=== PATIENT | male | born 1985 | race Caucasian/White ===

== ENCOUNTER 2016-03-26 08:47 | Day surgery (SDC) | payer OTHER ==
[~2016-03-26 08:47] MED LIST: BICITRA 30 ML CUP PO ONE; CEFAZOLIN 2 GM-D5W BAG** 50 ML IV ONE; DILAUDID 2 MG INJECTION IV ONE; DIPRIVAN 200 MG/20 ML IV ONE; Decadron 4 MG INJ IV ONE; Lactated Ringers 1,000 ML IV SCH; Pepcid 20 MG VIAL IV ONE; SUBLIMAZE 250 MCG/5 ML IV ONE; TORAdol 30 mg Injection IV ONE; Versed 2 MG/2 ML Injection IV ONE; XYLOCAINE 100 MG/5 ML ABBOJECT IV ONE; Zofran 4 MG/2 ML VIAL IV ONE
[2016-03-26] MEDS ORDERED: XYLOCAINE 1%/Epi 1:100000 MDV 20 ML ONE (08:54)
[2016-03-26] MEDS ORDERED: Marcaine 0.5% SDV 10 ML ONE (08:54)
[2016-03-26] MEDS ORDERED: EPINEPHRINE 1:1000 1 ML AMP ONE (08:54)
[2016-03-26] MEDS ORDERED: Lactated Ringers 1,000 ML IV ONE ×2 (08:54→08:55)
[2016-03-26] MEDS ORDERED: Pepcid 20 MG VIAL IV ONE (08:55)
[2016-03-26] MEDS ORDERED: BICITRA 30 ML CUP ONE (08:55)
[2016-03-26] MEDS ORDERED: CEFAZOLIN 2 GM-D5W BAG** 50 ML IV ONE (08:55)
[2016-03-26] MEDS ORDERED: ON-Q PUMP 1 in Marcaine MPF 0.25% 30 ML*** 135 ML, Marcaine Mpf 0.5% Vial 30 Ml*** 135 ML IJ SCH (10:00)
[2016-03-26] MEDS ORDERED: DILAUDID 2 MG INJECTION ONE (12:33)
--- NOTE | 2016-03-26 12:36 | OP ---
SURGERY DATE/TIME: 03/26/2016 1130 PREOPERATIVE DIAGNOSIS: Internal derangement of the left knee. POSTOPERATIVE DIAGNOSES: 1) Chondromalacia patella left knee. 2) Left knee multiple osteochondral loose bodies. PROCEDURES: 1) Left knee arthroscopy with chondroplasty to the patella. 2) Left knee arthroscopy with extensive debridement with removal of loose bodies. 3) Long leg splint. 4) On-Q pump catheter postoperative pain. SURGEON: Gus Barreto D.O. DIETARY AIDE COOK: None. ANESTHESIA: General per [employer]INTENA[employer]CE WORKER. ESTIMATED BLOOD LOSS: Minimal. DESCRIPTION OF PROCEDURE: The patient is taken to the operative suite and placed in supine position, given a general anesthesia. Entry point made in the suprapatellar of the knee with Egress cannula and 0.5% Marcaine, 1% lidocaine with epinephrine placed 50 cc into the lateral aspect and knee entered with a camera. Stab incision on the opposite side with a 404 radius shaver placed and posterior horns were both assessed. Small trimming of both of these areas were necessary but nothing dramatic. ACL was intact. Small areas of loose bodies were picked up, plucked, visualized and pictured. The rest of the knee looked fairly clean. I did not see any outstanding deficits in terms of alignment. Deficits were appreciated. The ArthroCare device was used for treating the chondral surfaces of the knee. The knee cap was visualized at depth of field to 1 to 2 outer bridge classification for covering 10 to 15 mm. The probe was done and intercondylar notch was probed and appreciated. The side marquez were assessed and cleaned. Once the surface assessed in both femoral condyles, both tibial plateaus and underneath the knee cap, then visualization of appropriate levels could be appreciated and the ArthroCare device was touched up probably 10 to 15 mm of space in the forward wall of the apex of the patella and the medial patellar facet. At the close of the procedure the knee was drained of saline. On-Q pump catheter placed through separate entry point astride the extra-articular portion of the knee and secured with Steri-Strips run at a 1 to 2 cc per hour rate. Long leg splint applied. Sterile prep done the rest of the way and Ethilon sutures placed in the portal sites. The patient was sent on to the recovery room in satisfactory condition. I proceeded to attempt to find the patient's family for discussion.
[2016-03-26 14:16] VITALS: O2SAT 99
[2016-03-26 14:30] VITALS: BP 145/77; PULSE 93
== END 2016-03-26 14:10 | disposition home or self-care (01) ==
LOC: SDC 08:47
PROVIDERS: ATTEND Orthopaedic Surgery
PROC: 0SBD4ZX Excision of Left Knee Joint, Percutaneous Endoscopic Approach, Diagnostic (ICD-10-PCS; principal; 2016-03-26)
PROC: 0SCD4ZZ Extirpation of Matter from Left Knee Joint, Percutaneous Endoscopic Approach (ICD-10-PCS; 2016-03-26)
DX: M23.92 Unspecified internal derangement of left knee (principal); M22.42 Chondromalacia patellae, left knee; M23.42 Loose body in knee, left knee; M25.562 Pain in left knee
CPT/HCPCS: 01400; J0171; J0690; J1100; J1170; J1885; J2001; J2250; J2405; J2704; J3010; L1830